=== PATIENT | male | born 1955 | race Caucasian/White ===

== ENCOUNTER 2017-01-05 10:19 | Emergency (ER) | payer OTHER ==
[~2017-01-05 10:19] MED LIST: ALLEGRA PO; ALTACE PO; ALTACE10 M2 DOB; AMAZING BUTT CREAM TOP; ASPIRIN PO; ASPIRIN PR; ATENOLOL PO; ATIVAN0.5 M1 DOB; CARDIZEM SR DOB; CARVEDILOL25 MG PO; CIPRO PO; COATED ASPIRIN325 M1 DOB; COREG12.5 MG DOB; CORRECTOL5 M1 DOB; CRESTOR PO; CRESTOR10 MG PO; DYMISTA NASAL S23 GM NS; EFFIENT10 MG DOB; EFFIENT10 MG PO; FISH OIL 1,0001 CAP PO; FISHOIL; FLAGYL PO; FOLIC ACID1 MG DOB; K-DUR20 ME1 DOB; LASIX20 MG PO; LIDOCAINE PO; LIPITOR PO; LORTAB 10-5001 EACH PO; MAGNESIUM400 MG DOB; METRONIDAZOLE PO; MONTELUKAST SOD10 MG PO; NASONEX17 GM; NIASPAN PO; NIASPAN1000 MG PO; NORVASC; OMEPRAZOLE20 M2 PO; OXYCODONE H5 MG/5 ML DOB; OXYCODONE HCL5 MG PO; OXYCODONE20 MG/1 M1 PO; PHENERGAN PO; PILOCARPINE HCL5 MG PO; PREDNISONE PO; PRILOSEC20 M1 PO; PROTONIX40 MG/BLIS DOB; RAMIPRIL10 MG DOB; RAMIPRIL10 MG PO; ROBITUSSIN A-C S5 ML DOB; SINGULAIR; STAHIST TA1 TAB.SR .; TESSALON200 MG DOB; TESSALON200 MG PO; VITAMIN B650 M1; [UNRECOGNIZED DRUG - OTHER] PO
[2017-01-05 10:48] LABS: BASOPHIL% 0.4 % (0-2.5); EOSINOPHIL# 0.1 X10e3 (0-0.7); EOSINOPHIL% 0.5 % (0.0-7.0); HEMATOCRIT 44.7 % (38.0-50.0); HEMOGLOBIN 15.7 gm/dL (13.0-16.0); LYMPHOCYTE# 1.1 X10e3 (1.0-3.5); LYMPHOCYTE% 9.6 % (17.0-45.0); MEAN CELL VOLUME 96.8 FL (83-96); MEAN CORPUSCULAR HEMOGLOBIN 33.9 PG (28-34); MEAN PLATELET VOLUME 7.8 FL (6.5-11.5); MONOCYTE# 1.1 X10e3 (0-1.0); MONOCYTE% 9.9 % (3.0-12.0); NEUTROPHIL# 9.2 X10e3 (1.5-7.1); NEUTROPHIL% 79.6 % (40-75); PLATELET COUNT 186 X10e3 (140-420); RED BLOOD COUNT 4.62 X10e (3.90-5.60); RED CELL DISTRIBUTION WIDTH 13.4 % (11.0-15.5); WHITE BLOOD COUNT 11.5 X10e3 (4.0-10.5)
[2017-01-05 10:49] LABS: DIFF IND NO
[2017-01-05 11:05] LABS: ALBUMIN SERUM 4.1 g/dL (3.5-5.0); BILIRUBIN, DIRECT 0.3 mg/dL (0.0-0.2); BILIRUBIN,INDIRECT 1.2 mg/dL (0.0-0.9); BILIRUBIN,TOTAL 1.5 mg/dL (0.2-2.0); BUN/CREATININE RATIO 15.71; CALCIUM SERUM 8.7 mg/dL (8.4-10.2); CREATININE SERUM 0.7 mg/dL (0.6-1.4); GLOM FILT RATE Estimated 101.2 mL/min (>60); POTASSIUM 3.7 mmol/L (3.5-5.1); PROTEIN TOTAL SERUM 7.2 g/dL (6.0-8.3)
[2017-01-05 12:48] LABS: URINE SOURCE CLEAN CATCH
[2017-01-05 12:50] LABS: URINE APPEARANCE CLEAR; URINE BILIRUBIN NEG (NEG); URINE BLOOD 2+ (NEG); URINE COLOR YELLOW; URINE GLUCOSE NEG (NORM); URINE KETONE NEG (NEG); URINE LEUKOCYTE ESTERASE NEG (NEG); URINE NITRATE NEG (NEG); URINE PH 6.5 (5-8); URINE PROTEIN NEG (NEG); URINE UROBILINOGEN 0.2 MG/DL (NORM)
[2017-01-05 12:52] LABS: MICRO INDICATED? YES
[2017-01-05 12:55] LABS: CULTURE INDICATED? NO; URINE BACTERIA NEG (NEG); URINE WBC 0-2 /[HPF] (0-5)
== END 2017-01-05 17:07 ==
LOC: SED 10:19
PROVIDERS: Emergency Medicine
DX: K55.9 Vascular disorder of intestine, unspecified (principal); K21.9 Gastro-esophageal reflux disease without esophagitis; Z98.890 Other specified postprocedural states
CPT/HCPCS: 80048; 80076; 81003; 83690; 85025; 96361; 96374; 96375; 99285; C9113; J2405

== ENCOUNTER 2017-04-07 06:35 | Emergency (ER) | payer OTHER ==
[2017-04-07] MEDS ORDERED: CARVEDILOL12.5 MG PO (06:42)
== END 2017-04-07 08:29 | disposition home or self-care (01) ==
LOC: SED 06:35
DX: S39.012A Strain of muscle, fascia and tendon of lower back, initial encounter (principal); K21.9 Gastro-esophageal reflux disease without esophagitis; Z79.82 Long term (current) use of aspirin; Z79.899 Other long term (current) drug therapy; X50.9XXA Other and unspecified overexertion or strenuous movements or postures, initial encounter
CPT/HCPCS: 96372; 99283; J1885

== ENCOUNTER → 2017-05-30 | Outpatient (CLI) | payer OTHER ==
[~2017-05-30] MED LIST changes: +CARVEDILOL12.5 MG PO
--- NOTE | ~2017-05-30 | XA30 ---
[facility] A Service of [facility] & [facility] / [facility] RADIOLOGY TEXT RESULTS PATIENT: CARINA SALAZAR LOCATION: CIVR : 53 UNIT #: [id number] AGE: [address]: Carlos Manuel Kinney MD SEX: M ORDER DR: [id number] [facility] [address] [place], [place] [address] [id number] O MR#: [id number] Acc #: [id number] NAME: CARINA SALAZAR : 1955 SEX: M STUDY DATE/TIME: 05/30/2017 12:19 UNIT: [facility] ROOM: STUDY DESCRIPTION: XA Arthrocentesis Major Joint Attending Physician: Carlos Manuel Kinney M.D. Referring Physician: Carlos Manuel Kinney M.D. Ordering Physician: Carlos Manuel Kinney M.D. Primary Care Physician: Ruperto Soto M.D. MEDICAL IMAGING REPORT This report is preliminary unless electronic signature is present EXAM Left hip injection. INDICATION Left hip pain. PROCEDURE The risks, benefits, and alternatives to the procedure were explained to the patient, and signed informed consent was obtained. He was placed supine on the angiographic table and was prepped and draped in the usual sterile fashion. A time-out was performed as per protocol. Skin and subcutaneous tissues were anesthetized with buffered lidocaine and a 22-gauge spinal needle was advanced into the joint space. Contrast was injected which confirmed location in the joint space. I then instilled a combination of lidocaine, bupivacaine, and Depo-Medrol. Needle was then removed and manual pressure was applied until hemostasis was obtained. The patient tolerated the procedure well and there were no immediate complications. Total fluoroscopy time was 0.2 minutes and a single fluoroscopic image was obtained. IMPRESSION Technically successful fluoroscopically guided left hip injection as noted above. Fluoroscopy was used during the procedure and permanent images were saved. Dictated by... Dolores Batista M.D. THIS IS AN ELECTRONICALLY VERIFIED REPORT Dolores Batista M.D. at 05/31/2017 4:55 PM AFF/tmw [facility]. [facility] A Service of [facility] & [facility] / [facility] RADIOLOGY TEXT RESULTS PATIENT: CARINA SALAZAR LOCATION: [facility] #: [id number] : 53 UNIT #: [id number] AGE: [address]: Carlos Manuel Kinney MD SEX: M ORDER DR: TD: 05/31/2017 11:57 JOB #: [id number] MEDICAL IMAGING REPORT Page 1 of 1 COPY
== END | disposition home or self-care (01) ==
LOC: CIVR 12:03
DX: M16.12 Unilateral primary osteoarthritis, left hip (principal)
CPT/HCPCS: 77002; J1030; Q9966